=== PATIENT | male | born 1970 | race African-American/Black ===

== ENCOUNTER 2016-10-30 18:33 | Emergency (ER) | payer OTHER ==
[2016-10-30 19:13] VITALS: BP 118/84
--- NOTE | 2016-10-30 19:15 | ER Document Report ---
HPI - HPI Patient complains to provider of: right knee pain Onset: Last week Onset/Duration: Persistent Quality of pain: Achy Severity: Severe Pain Level: 4 Context: Patient presents to the emergency department with complaints of right knee pain. He reports that he possibly twisted it last week. He went to physicians immediate care treated with Ultram and anti-inflammatory. Patient reports the pain has been increasing. Patient offered pain medication but declined reports is feeling better since he took the Tylenol. Denies pmh of injury to the knee. Associated Symptoms: None Exacerbated by: Walking Relieved by: Denies Similar symptoms previously: Yes Recently seen / treated by doctor: Yes - DERM Skin Color: Normal Past Medical History - General Information source: Patient - Social History Smoking Status: Unknown if Ever Smoked Cigarette use (# per day): No Frequency of alcohol use: None Drug Abuse: None Lives with: Family Family History: None Patient has suicidal ideation: No Patient has homicidal ideation: No Endocrine Medical History: Reports: Hx Diabetes Mellitus Type 2 Renal/ Medical History: Denies: Hx Peritoneal Dialysis Surgical Hx: Negative Vertical Provider Document - CONSTITUTIONAL Agree With Documented VS: Yes Exam Limitations: No Limitations General Appearance: WD/WN, Mild Distress - winces with movement - INFECTION CONTROL TRAVEL OUTSIDE OF THE [place] IN LAST 30 DAYS: No - HEENT HEENT: Atraumatic, Normocephalic - NECK Neck: Supple - RESPIRATORY Respiratory: No Respiratory Distress O2 Sat by Pulse Oximetry: 95 - CARDIOVASCULAR Cardiovascular: Tachycardia - MUSCULOSKELETAL/EXTREMETIES Musculoskeletal/Extremeties: MAEW, Tender - right anterior knee ttp, hurts more when turning medially. no obvious deformity, no erythema, no obvious swelling - NEURO Level of Consciousness: Awake, Alert, Appropriate Motor/Sensory: No Motor Deficit - DERM Integumentary: Warm, Dry Adult Front & Back Diagram: 1 - ttp Course - Re-evaluation Re-evalutation: 10/30/16 20:02 No acute fracture Discussed tendinosis with patient. Patient instructed on plan of care rest ice elevated. Pt reports he was prescribed meloxicam. He was instructed to follow up with orthopedics rest ice and elevate the knee. He was prescribed some pain medication for the acute pain. He verbalized understanding to all instructions - Vital Signs Vital signs: Temp Pulse Resp BP Pulse Ox 98.5 F 100 18 118/84 95 10/30/16 19:12 10/30/16 19:12 10/30/16 19:12 10/30/16 19:12 10/30/16 19:12 - Diagnostic Test Radiology reviewed: Image reviewed, Reports reviewed - Diagnostic report text EXAM DESCRIPTION: KNEE RIGHT 4 VIEWS COMPLETED DATE/TIME: 10/30/2016 7:28 pm REASON FOR STUDY: 31- knee pain COMPARISON: None. NUMBER OF VIEWS: Four views. TECHNIQUE: AP, lateral, and both oblique radiographic images acquired of the right knee. LIMITATIONS: None. FINDINGS: MINERALIZATION: Normal. BONES: No acute fracture or dislocation. No worrisome bone lesions. Enthesopathy superior patella and tibial tuberosity compatible with chronic tendinosis. JOINT: Mild osteoarthritis patellofemoral compartment. SOFT TISSUES: No soft tissue swelling. No radio-opaque foreign body. OTHER: No other significant finding. TECHNICAL DOCUMENTATION: JOB ID: [id number]- All Rights Reserved RAD/ KNEE RIGHT 4 VIEWS IMPRESSION: DEGENERATIVE CHANGE ABOVE WITHOUT ACUTE OSSEOUS ABNORMALITY Discharge - Discharge Clinical Impression: Right knee pain Qualifiers: Chronicity: acute Qualified Code(s): M25.561 - Pain in right knee Condition: Stable Disposition: HOME, SELF-CARE Instructions: Suspected Internal Knee Injury ([facility]), Ice & Elevation ([facility]), Oral Narcotic Medication ([facility]) Additional Instructions: *You have been evaluated for right knee pain *Rest/Ice/Elevate *Follow up with orthopedics tomorrow-call for an appointment *Take medication as prescribed *Return to ED for worsening condition, changes, needs Forms: Return to Work Referrals: [facility] [Provider Group] - Follow up tomorrow (call for appointment)
[2016-10-30] MEDS ORDERED: HYDROCODONE/ACETAMINOPHEN 5-325 MG 6 TAB/DSPK PO PRN (19:46)
== END 2016-10-30 20:05 | disposition home or self-care (01) ==
LOC: ER 18:33
DX: M25.561 Pain in right knee (principal)
CPT/HCPCS: 99283

== ENCOUNTER 2017-03-25 18:29 | Inpatient (IN) | payer OTHER ==
[2017-03-25 19:37] LABS: ABSOLUTE EOSINOPHILS # (AUTO) 0.2 10^3/uL (0.0-0.6); ABSOLUTE LYMPHOCYTES (AUTO) 1.5 10^3/uL (0.5-4.7); ABSOLUTE MONOCYTES (AUTO) 0.6 10^3/uL (0.1-1.4); ABSOLUTE NEUT (AUTO) 5.7 10^3/uL (1.7-8.2); BASOPHILS % (AUTO) 0.3 % (0-2); HEMATOCRIT 52.2 % (37.9-51.0); HGB HCT DIFFERENCE -1.2; LYMPHOCYTES % (AUTO) 19.3 % (13-45); MEAN CORPUSCULAR HEMOGLOBIN 25.2 pg (27.0-33.4); MEAN CORPUSCULAR HGB CONC 32.6 g/dL (32.0-36.0); MEAN CORPUSCULAR VOLUME 77 fl (80-97); MONOCYTES % (AUTO) 7.3 % (3-13); RED BLOOD COUNT 6.74 10^6/uL (4.35-5.55); RED CELL DISTRIBUTION WIDTH 14.4 % (11.5-14.0); SEGMENTED NEUTROPHILS % (AUTO) 71.1 % (42-78)
--- NOTE | 2017-03-25 19:37 | ER Document Report ---
ED General - General Chief Complaint: General Weakness Stated Complaint: BODY WEAKNESS Time Seen by Provider: 03/25/17 19:12 Mode of Arrival: Ambulatory Information source: Patient Notes: This is a 46-year-old man recently diagnosed with diabetes who presents to the emergency room because of his extreme weakness, feeling faint. Patient's blood pressure was noted to be 73/24 in triage with a heart rate of 126. Patient denies chest pain or shortness of breath. Patient denies fever, chills or recent illnesses. Patient denies nausea or vomiting. Patient denies abdominal pain. Patient denies any blood per rectum. TRAVEL OUTSIDE OF THE [place] IN LAST 30 DAYS: No - HPI Onset: Last week Onset/Duration: Gradual Quality of pain: No pain Severity: None Pain Level: Denies Associated symptoms: denies: Chest pain, Fever, Shortness of breath Exacerbated by: Denies Relieved by: Denies Similar symptoms previously: No Recently seen / treated by doctor: Yes - Related Data Allergies/Adverse Reactions: strawberry Allergy (Verified 03/25/17 18:43) Past Medical History - General Information source: Patient - Social History Smoking Status: Former Smoker Cigarette use (# per day): No Chew tobacco use (# tins/day): No Frequency of alcohol use: None Drug Abuse: None Lives with: Family Family History: None Patient has suicidal ideation: No Patient has homicidal ideation: No - Past Medical History Cardiac Medical History: Reports: None Pulmonary Medical History: Reports: None EENT Medical History: Reports: None Endocrine Medical History: Reports: Hx Diabetes Mellitus Type 2 Renal/ Medical History: Reports: None. Denies: Hx Peritoneal Dialysis Malignancy Medical History: Reports None GI Medical History: Reports: None Musculoskeltal Medical History: Reports None Psychiatric Medical History: Reports: None Traumatic Medical History: Reports: None Infectious Medical History: Reports: None Surgical Hx: Negative - Immunizations Hx Diphtheria, Pertussis, Tetanus Vaccination: Yes Review of Systems - Review of Systems Constitutional: denies: Chills, Fever EENT: No symptoms reported Cardiovascular: No symptoms reported Respiratory: No symptoms reported Gastrointestinal: No symptoms reported Genitourinary: No symptoms reported Male Genitourinary: No symptoms reported Musculoskeletal: No symptoms reported Skin: No symptoms reported Hematologic/Lymphatic: No symptoms reported Neurological/Psychological: See HPI Physical Exam - Vital signs Vitals: Temp Pulse Resp BP Pulse Ox 97.7 F 126 H 20 73/24 L 97 03/25/17 18:43 03/25/17 18:43 03/25/17 18:43 03/25/17 18:43 03/25/17 18:43 Notes: Physical exam: GENERAL: 46-year-old man, alert and oriented 3, no acute distress, current blood pressure is 127/50 with a pulse of 120 HEAD: Atraumatic, normocephalic. EYES: Pupils equal round and reactive to light, extraocular movements intact, sclera anicteric, conjunctiva are normal. ENT: TMs normal, nares patent, oropharynx clear without exudates. Moist mucous membranes. NECK: Normal range of motion, supple without obvious mass or JVD. LUNGS: Breath sounds clear to auscultation bilaterally and equal. No wheezes rales or rhonchi. HEART: Regular rate and rhythm without murmurs, rubs or gallops. ABDOMEN: Soft, normoactive bowel sounds. No tenderness to palpation. No guarding, no rebound. No masses appreciated. EXTREMITIES: Normal range of motion, no pitting or edema. No clubbing or cyanosis. NEUROLOGICAL: Cranial nerves II through XII grossly intact. Normal speech, moving all extremities. PSYCH: Normal mood, normal affect. SKIN: Warm, Dry, normal turgor, no rashes or lesions noted. Course - Re-evaluation Re-evalutation: 03/25/17 21:33 Patient has been treated with IV fluids and IV insulin. His last blood pressure is 126/82 with a pulse of 93 plan is for admit to the [facility] - Vital Signs Vital signs: Temp Pulse Resp BP Pulse Ox 97.7 F 126 H 18 131/70 H 96 03/25/17 19:21 03/25/17 19:21 03/25/17 23:01 03/25/17 23:01 03/25/17 23:01 - Laboratory Result Diagrams: 03/25/17 19:03 03/25/17 19:03 Laboratory results interpreted by me: 03/25/17 03/25/17 03/25/17 19:03 19:03 19:43 RBC 6.74 H Hct 52.2 H MCV 77 L MCH 25.2 L RDW 14.4 H VBG pH 7.20 L VBG HCO3 14.2 L Sodium 135.3 L Potassium 5.7 H Carbon Dioxide 13 L Anion Gap 24 H BUN 23 H Creatinine 1.42 H Est GFR (Non-Af Amer) 53 L Glucose 464 H* Direct Bilirubin 0.6 H ALT 105 H Creatine Kinase 199 H Urine Glucose (UA) Urine Ketones Urine Blood 03/25/17 20:03 RBC Hct MCV MCH RDW VBG pH VBG HCO3 Sodium Potassium Carbon Dioxide Anion Gap BUN Creatinine Est GFR (Non-Af Amer) Glucose Direct Bilirubin ALT Creatine Kinase Urine Glucose (UA) >=500 H Urine Ketones 80 H Urine Blood SMALL H - Diagnostic Test Radiology reviewed: Image reviewed, Reports reviewed - Chest x-ray shows no infiltrates or effusions Critical Care Note - Critical Care Note Total time excluding time spent on procedures (mins): 90 Discharge - Discharge Clinical Impression: DKA Condition: Stable Disposition: ADMITTED INPATIENT Admitting Provider: Hospitalist - Dr. Flores Unit Admitted: [facility]
[2017-03-25] MEDS ORDERED: NORMAL SALINE 1000 ML 1,000 ML IV PRN ×2 (19:38→23:59)
[2017-03-25] MEDS ORDERED: RINGERS SOLUTION,LACTATED 1,000 ML IV ONE (19:38)
[2017-03-25 19:41] LABS: ALANINE AMINOTRANSFERASE 105 U/L (21-72); ALBUMIN 4.9 g/dL (3.5-5.0); ALKALINE PHOSPHATASE 82 U/L (38-126); ASPARTATE AMINO TRANSFERASE 38 U/L (17-59); BILIRUBIN,DIRECT 0.6 mg/dL (0.0-0.4); BILIRUBIN,TOTAL 0.9 mg/dL (0.2-1.3); BLOOD UREA NITROGEN 23 mg/dL (7-20); CHLORIDE 98 mmol/L (98-107); CREATINE KINASE 199 U/L (55-170); CREATININE RESULT 1.42 mg/dL (0.52-1.25); POTASSIUM 5.7 mmol/L (3.6-5.0); TOTAL PROTEIN 8.2 g/dL (6.3-8.2)
[2017-03-25 19:53] LABS: CREATINE KINASE MB 2.13 ng/mL (<4.55); GLUCOSE 464 mg/dL (75-110)
[2017-03-25 19:56] LABS: VENOUS BLOOD BASE EXCESS -13.1 mmol/L; VENOUS BLOOD HCO3 14.2 mmol/L (20-32); VENOUS BLOOD PCO2 37.4 mmHg (35-63); VENOUS BLOOD PH 7.2 (7.30-7.42)
[2017-03-25 19:56] LABS: CARBON DIOXIDE 13 mmol/L (22-30); SODIUM 135.3 mmol/L (137-145)
[2017-03-25 19:57] LABS: ANION GAP 24 (5-19)
[2017-03-25 19:58] LABS: TROPONIN I < 0.012 ng/mL
[2017-03-25] MEDS ORDERED: DEXTROSE 50%-WATER 25 GM/50 ML DISP.SYRIN IV PRN ×4 (20:00→21:40)
[2017-03-25] MEDS ORDERED: NORMAL SALINE 100 ML with INSULIN REGULAR, HUMAN 100 UNIT IV PRN ×2 (20:00)
[2017-03-25] MEDS ORDERED: GLUCAGON,HUMAN RECOMB 1 MG INJ IM PRN ×2 (20:00→21:40)
[2017-03-25] MEDS ORDERED: DEXTROSE 40% GEL 15 GM TUBE PO PRN ×4 (20:00→21:40)
[2017-03-25 20:20] LABS: APPEARANCE,URINE CLEAR; BILIRUBIN,URINE NEGATIVE (NEGATIVE); GLUCOSE, URINE >=500 mg/dL (NEGATIVE); KETONES,URINE 80 mg/dL (NEGATIVE); LEUKOCYTE ESTERASE,URINE NEGATIVE (NEGATIVE); NITRITE,URINE NEGATIVE (NEGATIVE); PROTEIN,URINE NEGATIVE (NEGATIVE); URINE SPECIFIC GRAVITY 1.022; UROBILINOGEN,URINE NEGATIVE mg/dL (<2.0)
[2017-03-25] MEDS ORDERED: INSULIN REG, HUMAN 100 UNIT/ML 3 ML VIAL (PYX) ONE ×2 (21:11→21:12)
[2017-03-25] MEDS: NORMAL SALINE 100 ML with INSULIN REGULAR, HUMAN 100 UNIT IV PRN ×4 (21:12→22:47)
--- NOTE | 2017-03-25 21:38 | RADIOLOGY REPORT (SQ) ---
EXAM DESCRIPTION: CHEST SINGLE VIEW COMPLETED DATE/TIME: 03/25/2017 9:29 pm REASON FOR STUDY: chest pain COMPARISON: None. EXAM PARAMETERS: NUMBER OF VIEWS: One view. TECHNIQUE: Single frontal radiographic view of the chest acquired. RADIATION DOSE: NA LIMITATIONS: None. FINDINGS: LUNGS AND PLEURA: No opacities, masses or pneumothorax. No pleural effusion. MEDIASTINUM AND HILAR STRUCTURES: No masses. Contour normal. HEART AND VASCULAR STRUCTURES: Heart normal in size. Normal vasculature. BONES: No acute findings. HARDWARE: None in the chest. OTHER: No other significant finding. IMPRESSION: NO ACUTE RADIOGRAPHIC FINDING IN THE CHEST. TECHNICAL DOCUMENTATION: JOB ID: [id number]
[2017-03-25] MEDS ORDERED: 1/2 NORMAL SALINE 1,000 ML IV PRN (21:40)
[2017-03-25] MEDS ORDERED: 1/2 NORMAL SALINE 2,000 ML IV ONE (21:41)
[2017-03-25] MEDS ORDERED: ACETAMINOPHEN 325 MG TABLET PO PRN (21:42)
[2017-03-25] MEDS ORDERED: PROMETHAZINE HCL 25 MG TABLET PO PRN (21:44)
[2017-03-25 21:51] LABS: ADD ON TESTING BLD IN LAB ACKNOWLEDGE
[2017-03-25 22:14] LABS: MAGNESIUM 2.2 mg/dL (1.6-2.3)
[2017-03-25 22:18] LABS: URINE BARBITURATES SCREEN NEGATIVE; URINE METHADONE SCREEN NEGATIVE; URINE OPIATES LOW NEGATIVE; URINE PHENCYCLIDINE SCREEN NEGATIVE
[2017-03-25 23:29] LABS: BLOOD UREA NITROGEN 21 mg/dL (7-20); CALCIUM 9.2 mg/dL (8.4-10.2); CARBON DIOXIDE 12 mmol/L (22-30); CHLORIDE 104 mmol/L (98-107); CREATININE RESULT 1.15 mg/dL (0.52-1.25); GLUCOSE 297 mg/dL (75-110)
[2017-03-25 23:37] LABS: POTASSIUM 5.1 mmol/L (3.6-5.0); SODIUM 135.9 mmol/L (137-145)
[2017-03-25 23:42] LABS: ANION GAP 20 (5-19)
[2017-03-26 00:07] LABS: ADD ON TESTING BLD IN LAB ACKNOWLEDGE
--- NOTE | 2017-03-26 00:17 | PDOC H&P ---
History of Present Illness Admission Date/PCP: 03/25/17 21:45 Primary CARE provider none Patient complains of: Weakness History of Present Illness: CLAUDE SHELTON is a 46 year old morbidly obese -[place] male diagnosed last Saturday at an urgent care center with diabetes mellitus and started on metformin for same who presents to the emergency room for evaluation of above complaint. Patient has been discussed with emergency room physician who evaluated the patient. Over the last day or so, he has noted "extreme" generalized weakness, feeling faint, although never actually passing out. Patient's blood pressure in triage reported as 73/24, but subsequent blood pressures have been quite acceptable. States his blood sugar at the local urgent care center was "immeasurable." Was given a prescription for metformin. Frequent urination and thirst. Denies nausea vomiting, fever or chills, diarrhea or dysuria. No headache chest or abdominal pain. Denies any "sore spots" anywhere on his body. Family history remarkable for diabetes mellitus. Dictation via voice recognition software. Laboratory results are listed in [employer] and are reviewed. X-ray summary results are listed below, with full report(s) reviewed. . EKG reviewed. No prior EKG available for comparison. Social history/personal habits: Single. No children. 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 No use of alcohol tobacco or illicit drugs. Allergies/adverse reactions are listed in [employer] and are reviewed. No known drug allergies. Home medications metformin 500 mg p.o. twice daily REVIEW OF SYSTEMS: Constitutional: See history and present illness. Eyes: Wears glasses. ENT: No swallowing problems or complaints. Denies hearing loss. Pulmonary: No current complaints. Cardiovascular: No current complaints, including chest pain. Gastrointestinal: No current complaints, including nausea or vomiting. Skin: No current complaints, including rashes. Hematologic: Denies easy bruising. Neurologic: No current complaints, including numbness or tingling. Musculoskeletal: No current or chronic joint complaints, such as arthritis. Psychiatric: Denies anxiety or depression. Endocrine: See history and present illness. Genitourinary: No current complaints, including dysuria. PHYSICAL EXAMINATION: Blood pressure 134/90. Pulse 125 and regular. 96% saturation on room air. Respirations are 19 and unlabored. 5 feet 8 inches tall. 154.2 kg, with a BMI 51.7 kg/m. Temperature 97.7. Morbidly obese otherwise well-developed -[place] male appearing approximately his stated age. Pleasant awake alert and cooperative. No obvious distress other than somewhat anxious. Brother and [id number] are present at his side; patient approves. Skin is warm and dry. No grossly obvious evidence of rash in areas of skin examined. No subcutaneous nodules palpated. ENT: Hearing grossly normal to normal conversation. Tongue midline on protrusion pink and slightly tacky. Eyes: No scleral icterus. Pupils equal and reactive to light at 4 mm. [place] conjunctivae. Neck is supple and nontender to gentle active range of motion and palpation. Midline trachea. No palpable thyroid nodule mass enlargement or tenderness. Lymphatic: No palpable cervical or clavicular nodes. Neck and lymphatic exams limited by patient body habitus. Psychiatric: Reasonable insight into acute and chronic medical issues. Oriented to time location and why here. Lungs: Auscultation reveals clear and equal breath sounds bilaterally. No use of accessory respiratory muscles. Cardiovascular: Heart regular rate and rhythm, without gallop murmur or rub. No carotid or abdominal aortic bruits. No ankle or pedal edema. Faintly palpable dorsalis pedis pulses. Abdomen:soft quite obese nontender with positive bowel sounds. Unable to adequately evaluate abdomen for masses or organomegaly due to body habitus.. Extremities: Feet are warm and dry. No calf tenderness to compression. No grossly obvious visual evidence of calf swelling. Gentle manipulation of lower extremities fails to reveal any obvious evidence of injury or instability to knees hips or ankles. Neurologic: Moves upper extremities grossly normally. Patellar reflexes absent. Absent Babinski. Light touch is intact at feet. Dorsiflexion and plantarflexion of feet 5 / 5 and symmetric. Past Medical History Cardiac Medical History: Denies: Atrial Fibrillation, Congestive Heart Failure, Coronary Artery Disease, DVT, Myocardial Infarction, Hyperlipidema, Hypertension, Pulmonary Embolism Pulmonary Medical History: Denies: Asthma, Chronic Obstructive Pulmonary Disease (COPD), Sleep Apnea EENT Medical History: Reports: Eyes - Glasses Denies: Ears, Throat Neurological Medical History: Denies: Hemorrhagic CVA, Ischemic CVA, Seizures Endocrine Medical History: Reports: Diabetes Mellitus Type 2 Denies: Diabetes Mellitus Type 1, Hyperthyroidism, Hypothyroidism Renal/ Medical History: Reports: None Malignancy Medical History: Reports: None GI Medical History: Denies: Cirrhosis, Gastroesophageal Reflux Disease, Hepatitis, Peptic Ulcer Disease Musculoskeltal Medical History: Denies: Arthritis Skin Medical History: Reports: None Psychiatric Medical History: Denies: Alcohol Dependency, Depression, General Anxiety Disorder, Substance Abuse, Tobacco Dependency Traumatic Medical History: Reports: None Infectious Medical History: Denies: Hepatitis B, Hepatitis C Past Surgical History Past Surgical History: Reports: None Social History Information Source: Patient, Emergency Med Personnel, [facility] Lives with: Family Smoking Status: Unknown if Ever Smoked Frequency of Alcohol Use: None Hx Recreational Drug Use: No Drugs: None - Advance Directive Resuscitation Status: Full Code Surrogate healthcare decision maker:: Sister Cielo Byrd Family History Family History: None Parental Family History Reviewed: Yes - Mother alive and hypertensive; father alive, uncertain health status Children Family History Reviewed: NA Sibling(s) Family History Reviewed.: Yes - Hypertension Medication/Allergy Home Medications: RX: Insulin Glargine,Hum.rec.anlog [Lantus Insulin 100 Unit/mL] 40 unit SUBCUT DAILY #1 pkg 03/28/17 RX: Insulin Lispro [Humalog Insulin (Lispro) 100 unit/mL] 8 unit SUBCUT AC #1 g 03/28/17 RX: Metformin HCl [Glucophage 500 mg Tablet] 1,000 mg PO BIDACBS #60 tablet Allergies/Adverse Reactions: strawberry Allergy (Verified 03/25/17 18:43) Physical Exam Vital Signs: Temp Pulse Resp BP Pulse Ox 97.7 F 126 H 18 131/70 H 96 03/25/17 19:21 03/25/17 19:21 03/25/17 23:01 03/25/17 23:01 03/25/17 23:01 Intake & Output 03/24/17 03/25/17 03/26/17 00:59 00:59 00:59 Intake Total 2000 Output Total 500 Balance 1500 Results Laboratory Results: 03/25/17 22:50 03/25/17 03/25/17 22:05 22:50 Sodium Cancelled 135.9 L Potassium Cancelled 5.1 H Chloride Cancelled 104 Carbon Dioxide Cancelled 12 L Anion Gap Cancelled 20 H BUN Cancelled 21 H Creatinine Cancelled 1.15 Est GFR ( Amer) Cancelled > 60 Est GFR (Non-Af Amer) Cancelled > 60 Glucose Cancelled 297 H Calcium Cancelled 9.2 Impressions: Chest X-Ray 03/25/17 21:21 IMPRESSION: NO ACUTE RADIOGRAPHIC FINDING IN THE CHEST. Assessment & Plan - Diagnosis (1) DKA, type 2 Qualifiers: Diabetes mellitus complication detail: without coma Diabetes mellitus intermediate manager insulin use: without [facility] use Qualified Code(s): E13.10 - Other specified diabetes mellitus with ketoacidosis without coma Is this a current diagnosis for this admission?: Yes Plan: Patient will be admitted under DKA protocol. Insulin drip. Vigorous fluid hydration. Q 4 hours chemistry 7. Hourly Accu-Cheks. Addition of dextrose to intravenous fluid once serum glucose and/or Accu-Cheks 275 or less. Patient is full code. I have strongly encouraged patient not to get out of bed without notifying staff , to avoid a fall with injury. Knee high SCDs for DVT prophylaxis, along with subcutaneous heparin. Impression and plans were discussed with patient , who concurs. Time spent in evaluation and management of patient: 70 critical care minutes (2) DVT prophylaxis Is this a current diagnosis for this admission?: Yes (3) Elevated LFTs Is this a current diagnosis for this admission?: Yes Plan: Repeat chemistry. (4) Morbid obesity with BMI of 50.0-59.9, adult Is this a current diagnosis for this admission?: Yes Plan: Dietary consult. - Time Critical Time spent with patient: 35 or more minutes Medications reviewed and adjusted accordingly: Yes Anticipated discharge: Home Within: within 72 hours - Inpatient Certification Based on my medical assessment, after consideration of the patient's comorbidities, presenting symptoms, or acuity I expect that the services needed warrant INPATIENT care.: Yes I certify that my determination is in accordance with my understanding of Medicare's requirements for reasonable and necessary INPATIENT services [42 CFR 412.3e].: Yes Medical Necessity: Need Close Monitoring Due to Risk of Patient Decompensation, Need For IV Fluids, Need For Continuous Telemetry Monitoring, Risk of Diagnosis Which Will Require Inpatient Eval/Care/Monitoring Post Hospital Care: D/C or Transfer Summary
[2017-03-26] MEDS ORDERED: NORMAL SALINE 1000 ML 2,000 ML IV ONE (00:30)
[2017-03-26 00:38] LABS: CHOLESTEROL 226.56 mg/dL (0-200); Direct HDL 36 mg/dL (>40); TRIGLYCERIDES 232 mg/dL (<150)
[2017-03-26] MEDS ORDERED: MAGNESIUM HYDROXIDE SUSP 30 ML UDCUP PO PRN (00:43)
[2017-03-26 00:49] LABS: DIRECT LDL 158 mg/dL (<100)
[2017-03-26 00:51] LABS: VLDL CHOLESTEROL 46.4 mg/dL (10-31)
[2017-03-26] MEDS: DEXTROSE 5%-NORMAL SALINE 1,000 ML IV PRN ×2 (01:26→04:48)
[2017-03-26 02:16] LABS: ANION GAP 16 (5-19); BLOOD UREA NITROGEN 18 mg/dL (7-20); CALCIUM 8.6 mg/dL (8.4-10.2); CARBON DIOXIDE 16 mmol/L (22-30); CHLORIDE 107 mmol/L (98-107); CREATININE RESULT 1.13 mg/dL (0.52-1.25); GLUCOSE 186 mg/dL (75-110); POTASSIUM 4.7 mmol/L (3.6-5.0); SODIUM 138.9 mmol/L (137-145)
[2017-03-26 06:14] LABS: ANION GAP 10 (5-19); BLOOD UREA NITROGEN 16 mg/dL (7-20); CALCIUM 8.1 mg/dL (8.4-10.2); CARBON DIOXIDE 19 mmol/L (22-30); CHLORIDE 109 mmol/L (98-107); CREATININE RESULT 1.03 mg/dL (0.52-1.25); GLUCOSE 196 mg/dL (75-110)
[2017-03-26 06:26] LABS: ABSOLUTE EOSINOPHILS # (AUTO) 0.2 10^3/uL (0.0-0.6); ABSOLUTE LYMPHOCYTES (AUTO) 1.4 10^3/uL (0.5-4.7); ABSOLUTE MONOCYTES (AUTO) 0.6 10^3/uL (0.1-1.4); ABSOLUTE NEUT (AUTO) 3.2 10^3/uL (1.7-8.2); BASOPHILS % (AUTO) 0.5 % (0-2); EOSINOPHILS % (AUTO) 3.8 % (0-6); HGB HCT DIFFERENCE -0.5; MEAN CORPUSCULAR HEMOGLOBIN 25.1 pg (27.0-33.4); MEAN CORPUSCULAR VOLUME 76 fl (80-97); MONOCYTES % (AUTO) 10.7 % (3-13); RED BLOOD COUNT 5.41 10^6/uL (4.35-5.55); RED CELL DISTRIBUTION WIDTH 14.1 % (11.5-14.0); WHITE BLOOD COUNT 5.5 10^3/uL (4.0-10.5)
[2017-03-26 06:28] LABS: HEMOGLOBIN 13.5 g/dL (13.5-17.0)
[2017-03-26] MEDS: HEPARIN SOD (PORCINE) 5,000 UNIT/ML 1 ML SYRINGE SUBCUT SCH ×3 (06:43→21:55)
[2017-03-26] MEDS ORDERED: INSULIN REG, HUMAN 100 UNIT/ML 3 ML VIAL (PYX) ONE (07:37)
[2017-03-26] MEDS: NORMAL SALINE 100 ML with INSULIN REGULAR, HUMAN 100 UNIT IV PRN ×2 (07:48)
[2017-03-26] MEDS ORDERED: DEXTROSE 40% GEL 15 GM TUBE PO PRN (09:18)
[2017-03-26] MEDS ORDERED: GLUCAGON,HUMAN RECOMB 1 MG INJ IM PRN (09:18)
[2017-03-26] MEDS ORDERED: DEXTROSE 50%-WATER 25 GM/50 ML DISP.SYRIN IV PRN ×2 (09:18)
[2017-03-26] MEDS: INSULIN GLARGINE,HUM.REC.ANLOG 300 UNIT/3 ML INSULN.PEN SUBCUT SCH (10:47)
[2017-03-26] MEDS: POTASSI CL 20 MEQ/NS 1L 1,000 ML IV PRN ×2 (10:47→18:08)
[2017-03-26] MEDS: DOCUSATE SODIUM 100 MG CAPSULE PO SCH ×2 (10:48→17:30)
[2017-03-26 11:15] LABS: HEMOGLOBIN 13.5 g/dL (13.5-17.0); HGB HCT DIFFERENCE -0.5; MEAN CORPUSCULAR HEMOGLOBIN 24.9 pg (27.0-33.4); MEAN CORPUSCULAR VOLUME 76 fl (80-97); RED BLOOD COUNT 5.43 10^6/uL (4.35-5.55); RED CELL DISTRIBUTION WIDTH 14.1 % (11.5-14.0); WHITE BLOOD COUNT 4.9 10^3/uL (4.0-10.5)
[2017-03-26 11:35] LABS: ANION GAP 10 (5-19); BLOOD UREA NITROGEN 15 mg/dL (7-20); CALCIUM 8.3 mg/dL (8.4-10.2); CARBON DIOXIDE 20 mmol/L (22-30); CHLORIDE 108 mmol/L (98-107); GLUCOSE 228 mg/dL (75-110); POTASSIUM 4.4 mmol/L (3.6-5.0); SODIUM 137.5 mmol/L (137-145)
--- NOTE | 2017-03-26 11:53 | PDOC PROGRESS REPORT ---
Subjective Progress Note for:: 03/26/17 Subjective:: The patient is a morbidly obese 46-year-old -[place] male who was seen at a local urgent care a few days prior to admission. At that visit his blood sugar was too high to read on the meter and he was diagnosed with diabetes and sent home with a prescription of metformin. Over the next 3 days the patient continued to worsen and he presented to the emergency room where he was found to have evidence of diabetic ketoacidosis. He was admitted to the hospital and started on an insulin drip. This morning his anion gap is closed and his blood sugar has stabilized. Hemoglobin A1c is greater than 14. He is being transitioned to Lantus with sliding scale Humalog this afternoon and we will see how he does over the next 24 hours. This morning he states that he is feeling remarkably better than when he first came to the hospital. He was having polydipsia and polyuria which is greatly improved. He does not have a headache as well. He is going to be started on a diabetic diet today and we are going to have our diabetes nurse educator as well as the clinical dietitian seeing him today as well. I spent quite some time with the patient with initial education and all of his questions were answered. At this point it does look like the patient will be requiring insulin at discharge and the nursing staff is been asked to provide insulin training as well. Overall the patient denies fever or chills. His headache is improving. His polydipsia is resolving. He has had no chest pain, shortness of breath or heart palpitations. No nausea vomiting or diarrhea. No abdominal pain. His urinary frequency is improving. No dysuria or hematuria noted. Physical Exam Vital Signs: Temp Pulse Resp BP Pulse Ox 98.4 F 106 H 20 127/62 H 97 03/26/17 08:20 03/26/17 08:20 03/26/17 08:20 03/26/17 08:20 03/26/17 08:20 Intake & Output 03/25/17 03/26/17 03/27/17 06:59 06:59 06:59 Intake Total 4120 Output Total 500 Balance 3620 General appearance: PRESENT: no acute distress, morbidly obese, well-developed, well-nourished Head exam: PRESENT: atraumatic, normocephalic Eye exam: PRESENT: conjunctiva pink, EOMI, PERRLA. ABSENT: scleral icterus Mouth exam: PRESENT: moist, tongue midline Neck exam: ABSENT: carotid bruit, JVD, lymphadenopathy, thyromegaly Respiratory exam: PRESENT: clear to auscultation jolly. ABSENT: rales, rhonchi, wheezes Cardiovascular exam: PRESENT: tachycardia. ABSENT: diastolic murmur, rubs, systolic murmur GI/Abdominal exam: PRESENT: normal bowel sounds, soft. ABSENT: distended, guarding, mass, organolmegaly, rebound, tenderness Rectal exam: PRESENT: deferred Extremities exam: PRESENT: full ROM. ABSENT: calf tenderness, clubbing, pedal edema Musculoskeletal exam: PRESENT: ambulatory Neurological exam: PRESENT: alert, awake, oriented to person, oriented to place , oriented to time, oriented to situation, CN II-XII grossly intact. ABSENT: motor sensory deficit Psychiatric exam: PRESENT: appropriate affect, normal mood. ABSENT: homicidal ideation, suicidal ideation Skin exam: PRESENT: dry, intact, warm. ABSENT: cyanosis, rash Results Laboratory Results: 03/26/17 11:00 03/26/17 11:00 03/26/17 03/26/17 03/26/17 01:40 05:42 05:42 WBC 5.5 RBC 5.41 Hgb 13.5 D Hct 41.0 MCV 76 L MCH 25.1 L MCHC 33.0 RDW 14.1 H Plt Count 122 L Seg Neutrophils % 59.0 Lymphocytes % 26.0 Monocytes % 10.7 Eosinophils % 3.8 Basophils % 0.5 Absolute Neutrophils 3.2 Absolute Lymphocytes 1.4 Absolute Monocytes 0.6 Absolute Eosinophils 0.2 Absolute Basophils 0.0 Sodium 138.9 138.0 Potassium 4.7 4.0 Chloride 107 109 H Carbon Dioxide 16 L 19 L Anion Gap 16 10 BUN 18 16 Creatinine 1.13 1.03 Est GFR ( Amer) > 60 > 60 Est GFR (Non-Af Amer) > 60 > 60 Glucose 186 H 196 H Calcium 8.6 8.1 L 03/26/17 03/26/17 11:00 11:00 WBC 4.9 RBC 5.43 Hgb 13.5 Hct 41.0 MCV 76 L MCH 24.9 L MCHC 33.0 RDW 14.1 H Plt Count 122 L Seg Neutrophils % Lymphocytes % Monocytes % Eosinophils % Basophils % Absolute Neutrophils Absolute Lymphocytes Absolute Monocytes Absolute Eosinophils Absolute Basophils Sodium 137.5 Potassium 4.4 Chloride 108 H Carbon Dioxide 20 L Anion Gap 10 BUN 15 Creatinine 1.00 Est GFR ( Amer) > 60 Est GFR (Non-Af Amer) > 60 Glucose 228 H Calcium 8.3 L Impressions: Chest X-Ray 03/25/17 21:21 IMPRESSION: NO ACUTE RADIOGRAPHIC FINDING IN THE CHEST. Assessment & Plan - Diagnosis (1) Diabetic ketoacidosis Plan: The patient will be weaned off of his insulin drip. His anion gap is closed and his blood sugar is stabilizing. He will be started on Lantus 40 units daily with Humalog sliding scale before meals at bedtime. I am also going to place him on metformin twice daily at 500 mg. If he tolerates this we will increase it to 1000 mg twice daily at discharge. He will be seen by the diabetes nurse educator as well as the clinical dietitian. The nursing staff will provide insulin training today as well. Overall his diabetic ketoacidosis is resolving. (2) Uncontrolled diabetes mellitus Plan: This is a new diagnosis for the patient. I am going to get the discharge planners involved and he will need to be set up with a primary care physician. Fortunately the patient does have insurance. Otherwise plan as outlined above. (3) Elevated LFTs Is this a current diagnosis for this admission?: Yes Plan: Of undetermined significance at this point. We will simply recheck a liver panel in the morning. (4) Morbid obesity with BMI of 50.0-59.9, adult Is this a current diagnosis for this admission?: Yes Plan: Certainly his weight is contributing to his problems. I suspect he has quite a bit of insulin resistance which is why we will continue the metformin. The clinical dietitian will see him today. He is aware that weight loss would help his overall picture and he seems to be quite motivated at this point. (5) Thrombocytopenia Plan: This is of undetermined significance as well. He will have a CBC drawn in the morning. This may need to be further worked up by his new primary care provider. - Time Time Spent with patient: 35 or more minutes - Inpatient Certification Medical Necessity: Need Close Monitoring Due to Risk of Patient Decompensation - Inpatient hospitalization remains necessary. This patient was diagnosed with new onset diabetes mellitus as an outpatient and he failed conservative therapy. He presented with diabetic ketoacidosis. He is being weaned off of his insulin drip today but is still requiring further IV fluids. We also need to get his blood sugar stabilized on a regimen with Lantus and Humalog and he needs diabetic teaching and training prior to leaving the hospital. I am hopeful that all of this can be accomplished in the next 24-48 hours if the patient continues to improve., Need For IV Fluids
[2017-03-26] MEDS: INSULIN LISPRO 100 UNIT/ML 3 ML VIAL SUBCUT PRN ×3 (12:26→21:56)
[2017-03-26 15:45] LABS: ANION GAP 14 (5-19); BLOOD UREA NITROGEN 17 mg/dL (7-20); CALCIUM 8.5 mg/dL (8.4-10.2); CARBON DIOXIDE 14 mmol/L (22-30); CHLORIDE 108 mmol/L (98-107); CREATININE RESULT 1.22 mg/dL (0.52-1.25); GLUCOSE 341 mg/dL (75-110); POTASSIUM 4.7 mmol/L (3.6-5.0)
[2017-03-26] MEDS ORDERED: METFORMIN HCL 500 MG TABLET PO SCH (16:00)
--- NOTE | 2017-03-26 16:46 | EKG REPORT ---
SEVERITY:- OTHERWISE NORMAL ECG - SINUS TACHYCARDIA : Confirmed by: Ifeoma Bruno MD 26-Mar-2017 16:45:53
[2017-03-26 20:20] LABS: ANION GAP 13 (5-19); BLOOD UREA NITROGEN 18 mg/dL (7-20); CARBON DIOXIDE 14 mmol/L (22-30); CHLORIDE 109 mmol/L (98-107); CREATININE RESULT 1.21 mg/dL (0.52-1.25); GLUCOSE 342 mg/dL (75-110); POTASSIUM 4.8 mmol/L (3.6-5.0)
[2017-03-26 23:30] LABS: ANION GAP 11 (5-19); BLOOD UREA NITROGEN 17 mg/dL (7-20); CALCIUM 8.9 mg/dL (8.4-10.2); CARBON DIOXIDE 19 mmol/L (22-30); CHLORIDE 107 mmol/L (98-107); CREATININE RESULT 1.11 mg/dL (0.52-1.25); GLUCOSE 286 mg/dL (75-110); POTASSIUM 4.6 mmol/L (3.6-5.0)
[2017-03-27 03:15] LABS: ANION GAP 7 (5-19); BLOOD UREA NITROGEN 15 mg/dL (7-20); CALCIUM 8.9 mg/dL (8.4-10.2); CARBON DIOXIDE 21 mmol/L (22-30); CHLORIDE 111 mmol/L (98-107); GLUCOSE 247 mg/dL (75-110); POTASSIUM 4.4 mmol/L (3.6-5.0); SODIUM 138.9 mmol/L (137-145)
[2017-03-27] MEDS: POTASSI CL 20 MEQ/NS 1L 1,000 ML IV PRN ×2 (06:11→16:39)
[2017-03-27] MEDS: HEPARIN SOD (PORCINE) 5,000 UNIT/ML 1 ML SYRINGE SUBCUT SCH ×3 (06:12→22:48)
[2017-03-27 07:54] LABS: ANION GAP 7 (5-19); BLOOD UREA NITROGEN 14 mg/dL (7-20); CALCIUM 8.8 mg/dL (8.4-10.2); CARBON DIOXIDE 23 mmol/L (22-30); CHLORIDE 110 mmol/L (98-107); CREATININE RESULT 1.14 mg/dL (0.52-1.25); GLUCOSE 242 mg/dL (75-110); MAGNESIUM 2.2 mg/dL (1.6-2.3); POTASSIUM 4.3 mmol/L (3.6-5.0); SODIUM 140.2 mmol/L (137-145)
[2017-03-27] MEDS: METFORMIN HCL 500 MG TABLET PO SCH ×2 (08:24→16:34)
[2017-03-27] MEDS: INSULIN LISPRO 100 UNIT/ML 3 ML VIAL SUBCUT SCH ×3 (08:24→16:32)
--- NOTE | 2017-03-27 10:12 | PDOC PROGRESS REPORT ---
Subjective Progress Note for:: 03/27/17 Subjective:: The patient is seen today and states that he continues to improve. He states he did not realize how bad he had been feeling with his blood sugars running so high. His headache is almost totally resolved. He is having no blurry vision. He is having no chest pain, shortness of breath or heart palpitations. He is tolerating his diet and has had no nausea, vomiting or diarrhea. No abdominal pain. In fact he states he has not had a bowel movement since Saturday and is getting to be a little bit uncomfortable. He states his urinary frequency is improving. No dysuria or hematuria. Physical Exam Vital Signs: Temp Pulse Resp BP Pulse Ox 98.3 F 103 H 16 117/50 L 100 03/27/17 07:20 03/27/17 07:20 03/27/17 07:20 03/27/17 07:20 03/27/17 07:20 Intake & Output 03/26/17 03/27/17 03/28/17 06:59 06:59 06:59 Intake Total 4120 4021 Output Total 500 0 Balance 3620 4021 Weight 154.9 kg General appearance: PRESENT: no acute distress, morbidly obese, well-developed, well-nourished Head exam: PRESENT: atraumatic, normocephalic Eye exam: PRESENT: conjunctiva pink, EOMI, PERRLA. ABSENT: scleral icterus Mouth exam: PRESENT: moist, tongue midline Respiratory exam: PRESENT: clear to auscultation jolly. ABSENT: rales, rhonchi, wheezes Cardiovascular exam: PRESENT: RRR. ABSENT: diastolic murmur, rubs, systolic murmur GI/Abdominal exam: PRESENT: hypoactive bowel sounds, soft, other - Abdomen is morbidly obese. I could not assess for organomegaly due to the patient's body habitus.. ABSENT: distended, guarding, mass, rebound, tenderness Rectal exam: PRESENT: deferred Extremities exam: PRESENT: calf tenderness Musculoskeletal exam: PRESENT: ambulatory Neurological exam: PRESENT: alert, awake, oriented to person, oriented to place , oriented to time, oriented to situation, CN II-XII grossly intact. ABSENT: motor sensory deficit Psychiatric exam: PRESENT: appropriate affect, normal mood. ABSENT: homicidal ideation, suicidal ideation Skin exam: PRESENT: dry, intact, warm. ABSENT: cyanosis, rash Results Laboratory Results: 03/26/17 11:00 03/27/17 07:00 03/26/17 03/26/17 03/26/17 11:00 11:00 15:12 WBC 4.9 RBC 5.43 Hgb 13.5 Hct 41.0 MCV 76 L MCH 24.9 L MCHC 33.0 RDW 14.1 H Plt Count 122 L Sodium 137.5 136.0 L Potassium 4.4 4.7 Chloride 108 H 108 H Carbon Dioxide 20 L 14 L Anion Gap 10 14 BUN 15 17 Creatinine 1.00 1.22 Est GFR ( Amer) > 60 > 60 Est GFR (Non-Af Amer) > 60 > 60 Glucose 228 H 341 H Calcium 8.3 L 8.5 Magnesium 03/26/17 03/26/17 03/27/17 19:30 22:50 02:47 WBC RBC Hgb Hct MCV MCH MCHC RDW Plt Count Sodium 136.0 L 137.0 138.9 Potassium 4.8 4.6 4.4 Chloride 109 H 107 111 H Carbon Dioxide 14 L 19 L 21 L Anion Gap 13 11 7 BUN 18 17 15 Creatinine 1.21 1.11 1.20 Est GFR ( Amer) > 60 > 60 > 60 Est GFR (Non-Af Amer) > 60 > 60 > 60 Glucose 342 H 286 H 247 H Calcium 9.0 8.9 8.9 Magnesium 03/27/17 07:00 WBC RBC Hgb Hct MCV MCH MCHC RDW Plt Count Sodium 140.2 Potassium 4.3 Chloride 110 H Carbon Dioxide 23 Anion Gap 7 BUN 14 Creatinine 1.14 Est GFR ( Amer) > 60 Est GFR (Non-Af Amer) > 60 Glucose 242 H Calcium 8.8 Magnesium 2.2 Impressions: Chest X-Ray 03/25/17 21:21 IMPRESSION: NO ACUTE RADIOGRAPHIC FINDING IN THE CHEST. Assessment & Plan - Diagnosis (1) Diabetic ketoacidosis Plan: Resolving. His anion gap is closed and his metabolic acidosis has almost resolved. (2) Uncontrolled diabetes mellitus Plan: Hemoglobin A1c is 13.9. He is tolerating Lantus 40 units daily. I am going to add Humalog 8 units 3 times daily before meals and we will continue sliding scale coverage for now. I am going to increase his metformin to 1000 mg twice daily. Blood sugars are still higher than I would like for them to be but much improved. He has seen the clinical dietitian as well as the diabetes nurse educator. He is checking his own blood sugar and is still working on giving himself insulin injections. He is extremely motivated and asks very good questions regarding his diet. We are going to see if we can get his blood sugar doing a little bit better prior to going home which hopefully will be in the morning. I have asked the discharge planners to assign him a new primary care provider. (3) Elevated LFTs Is this a current diagnosis for this admission?: Yes Plan: I will check a liver panel in the morning. This was likely due to his diabetic ketoacidosis. (4) Morbid obesity with BMI of 50.0-59.9, adult Is this a current diagnosis for this admission?: Yes Plan: Certainly his weight is contributing to his problems. I suspect he has quite a bit of insulin resistance which is why we will continue the metformin. He seems quite motivated to get his blood sugar under control and lose weight. He would like to see the clinical dietitian one more time today because he has a few more questions. (5) Thrombocytopenia Plan: This is of undetermined significance as well. He will have a CBC drawn in the morning. This may need to be further worked up by his new primary care provider although I suspect this was due to his diabetic ketoacidosis. His levels are improving. (6) Constipation Plan: I will start the patient on a stool softener. He will have MiraLAX and a suppository available as needed. - Time Time Spent with patient: 25-34 minutes - Inpatient Certification Medical Necessity: Other - Inpatient hospitalization remains necessary. The patient's blood sugar is still much higher than I would like it to be. He needs to be proficient in giving himself insulin injections and needs further diabetic education prior to leaving the hospital. The tentative plan is to discharge him first thing in the morning after he meets with the diabetes nurse educator and clinical dietitian one more time today.
[2017-03-27] MEDS ORDERED: BISACODYL 10 MG SUPP.RECT PR PRN (10:33)
[2017-03-27] MEDS ORDERED: POLYETHYLENE GLYCOL 3350 POWDER 17 GM/1 PACKET PO PRN (10:34)
[2017-03-27] MEDS ORDERED: DOCUSATE SODIUM 100 MG CAPSULE PO SCH (11:00)
[2017-03-27 11:18] LABS: ANION GAP 9 (5-19); BLOOD UREA NITROGEN 15 mg/dL (7-20); CALCIUM 8.8 mg/dL (8.4-10.2); CARBON DIOXIDE 18 mmol/L (22-30); CHLORIDE 109 mmol/L (98-107); CREATININE RESULT 0.92 mg/dL (0.52-1.25); GLUCOSE 360 mg/dL (75-110); POTASSIUM 4.1 mmol/L (3.6-5.0)
[2017-03-27] MEDS: INSULIN GLARGINE,HUM.REC.ANLOG 300 UNIT/3 ML INSULN.PEN SUBCUT SCH (12:22)
[2017-03-27] MEDS: DOCUSATE SODIUM 100 MG CAPSULE PO SCH ×2 (12:27→18:01)
[2017-03-27 15:30] LABS: ANION GAP 9 (5-19); BLOOD UREA NITROGEN 14 mg/dL (7-20); CALCIUM 8.9 mg/dL (8.4-10.2); CARBON DIOXIDE 18 mmol/L (22-30); CHLORIDE 109 mmol/L (98-107); CREATININE RESULT 0.96 mg/dL (0.52-1.25); GLUCOSE 335 mg/dL (75-110); POTASSIUM 4.3 mmol/L (3.6-5.0); SODIUM 135.5 mmol/L (137-145)
[2017-03-27 19:19] LABS: ANION GAP 8 (5-19); BLOOD UREA NITROGEN 14 mg/dL (7-20); CALCIUM 9.1 mg/dL (8.4-10.2); CARBON DIOXIDE 19 mmol/L (22-30); CHLORIDE 109 mmol/L (98-107); CREATININE RESULT 0.95 mg/dL (0.52-1.25); GLUCOSE 293 mg/dL (75-110); POTASSIUM 4.1 mmol/L (3.6-5.0); SODIUM 136.3 mmol/L (137-145)
[2017-03-27] MEDS: INSULIN LISPRO 100 UNIT/ML 3 ML VIAL SUBCUT PRN (22:48)
[2017-03-27 23:17] LABS: ANION GAP 7 (5-19); BLOOD UREA NITROGEN 13 mg/dL (7-20); CALCIUM 9.3 mg/dL (8.4-10.2); CARBON DIOXIDE 19 mmol/L (22-30); CHLORIDE 112 mmol/L (98-107); CREATININE RESULT 0.94 mg/dL (0.52-1.25); GLUCOSE 268 mg/dL (75-110); POTASSIUM 4.1 mmol/L (3.6-5.0); SODIUM 138.1 mmol/L (137-145)
[2017-03-28 03:17] LABS: BLOOD UREA NITROGEN 12 mg/dL (7-20); CHLORIDE 111 mmol/L (98-107); CREATININE RESULT 1.03 mg/dL (0.52-1.25); GLUCOSE 236 mg/dL (75-110)
[2017-03-28 03:29] LABS: ANION GAP 5 (5-19); CARBON DIOXIDE 23 mmol/L (22-30); SODIUM 139.2 mmol/L (137-145)
[2017-03-28] MEDS: HEPARIN SOD (PORCINE) 5,000 UNIT/ML 1 ML SYRINGE SUBCUT SCH (05:24)
[2017-03-28 07:30] LABS: ABSOLUTE EOSINOPHILS # (AUTO) 0.1 10^3/uL (0.0-0.6); ABSOLUTE LYMPHOCYTES (AUTO) 1.1 10^3/uL (0.5-4.7); ABSOLUTE MONOCYTES (AUTO) 0.3 10^3/uL (0.1-1.4); BASOPHILS % (AUTO) 0.9 % (0-2); EOSINOPHILS % (AUTO) 3.9 % (0-6); HEMATOCRIT 38.1 % (37.9-51.0); HEMOGLOBIN 12.7 g/dL (13.5-17.0); LYMPHOCYTES % (AUTO) 43.5 % (13-45); MEAN CORPUSCULAR HEMOGLOBIN 25.3 pg (27.0-33.4); MEAN CORPUSCULAR HGB CONC 33.5 g/dL (32.0-36.0); MEAN CORPUSCULAR VOLUME 76 fl (80-97); MONOCYTES % (AUTO) 11.6 % (3-13); RED BLOOD COUNT 5.03 10^6/uL (4.35-5.55); RED CELL DISTRIBUTION WIDTH 14.3 % (11.5-14.0); SEGMENTED NEUTROPHILS % (AUTO) 40.1 % (42-78)
[2017-03-28 07:38] LABS: ALANINE AMINOTRANSFERASE 89 U/L (21-72); ALKALINE PHOSPHATASE 58 U/L (38-126); ANION GAP 7 (5-19); ASPARTATE AMINO TRANSFERASE 55 U/L (17-59); BILIRUBIN,DIRECT 0.4 mg/dL (0.0-0.4); BILIRUBIN,TOTAL 0.6 mg/dL (0.2-1.3); BLOOD UREA NITROGEN 11 mg/dL (7-20); CALCIUM 9.1 mg/dL (8.4-10.2); CARBON DIOXIDE 22 mmol/L (22-30); CHLORIDE 110 mmol/L (98-107); CREATININE RESULT 0.95 mg/dL (0.52-1.25); GLUCOSE 248 mg/dL (75-110); MAGNESIUM 1.7 mg/dL (1.6-2.3); POTASSIUM 4.5 mmol/L (3.6-5.0); SODIUM 138.7 mmol/L (137-145); TOTAL PROTEIN 5.1 g/dL (6.3-8.2)
[2017-03-28 07:51] LABS: WHITE BLOOD COUNT 2.6 10^3/uL (4.0-10.5)
[2017-03-28] MEDS: INSULIN LISPRO 100 UNIT/ML 3 ML VIAL SUBCUT SCH (08:15)
[2017-03-28] MEDS: METFORMIN HCL 500 MG TABLET PO SCH (08:15)
[2017-03-28] MEDS: INSULIN LISPRO 100 UNIT/ML 3 ML VIAL SUBCUT PRN (08:16)
--- NOTE | 2017-03-28 09:03 | PDOC DISCHARGE SUMMARY ---
General - Admit/Disc Date/PCP Admission Date/Primary Care Provider: 03/25/17 22:50 New primary Care Provider: Dr. Pardo Discharge Date: 03/28/17 - Discharge Diagnosis (1) Diabetic ketoacidosis Summary: Resolved (2) Uncontrolled diabetes mellitus Summary: New onset diabetes mellitus with a hemoglobin A1c greater than 14. The patient has been initiated on Lantus and mealtime Humalog. He also has been started on metformin 1000 mg twice daily. (3) Elevated LFTs Is this a current diagnosis for this admission?: Yes Summary: Likely secondary to diabetic ketoacidosis. Improving (4) Morbid obesity with BMI of 50.0-59.9, adult Is this a current diagnosis for this admission?: Yes Summary: The patient seems quite motivated to learn about diabetes and lose weight. (5) Thrombocytopenia Summary: Of undetermined significance at this point. Also on the day of discharge the patient has developed leukopenia. Further workup can be done as an outpatient. (6) Constipation Summary: Improved - Additional Information Resuscitation Status: Full Code Discharge Diet: Diabetic Discharge Activity: Activity As Tolerated, Balance Activity w/Rest, Slowly Increase Activity, Walk Frequently Home Medications: Insulin Glargine,Hum.rec.anlog [Lantus Insulin 100 Unit/mL] 40 unit SUBCUT DAILY #1 pkg 03/28/17 Insulin Lispro [Humalog Insulin (Lispro) 100 unit/mL] 8 unit SUBCUT AC #1 pkg Metformin HCl [Glucophage 500 mg Tablet] 1,000 mg PO BIDACBS #60 tablet History of Present Illness History of Present Illness: CLAUDE SHELTON is a 46 year old male who presented to the emergency room with diabetic ketoacidosis. Hospital Course Hospital Course: The patient is an extremely pleasant morbidly obese 46-year-old - Spanish male who was seen at a local urgent care a few days prior to admission. At that visit his blood pressure sugar was too high to be read on the meter and he was diagnosed with diabetes and sent home with a prescription for metformin 500 mg twice daily. Over the next 3 days the patient continued to worsen. He became increasingly lethargic, unable to eat with severe polydipsia and polyuria. In the emergency room he was found to have evidence of diabetic ketoacidosis. He was admitted to the hospital and initially started on an insulin drip. His anion gap normalized over the next several hours and he was transitioned to a regimen of Lantus and sliding scale insulin. He was started on metformin 1000 mg twice daily. At the time of admission his hemoglobin A1c was found to be greater than 14. Over the course of this hospitalization he was seen by our diabetes nurse educator and clinical dietitian. The nursing staff worked with the patient and on the day of discharge he is able to give himself insulin injections and check his own blood sugar. He will be discharged with Lantus 40 units daily and Humalog 12 units 3 times daily before meals. Fortunately the patient does have insurance although he does not have a primary care provider. Our discharge planners have set him up to follow with Dr. Pardo as an outpatient and he has an appointment scheduled for next week. The patient is encouraged to check his blood sugar 4 times daily and write down his values and take them to his first office appointment with Dr. Pardo. At this point the patient is quite stable and doing well. Maximum hospital benefit has been reached and he will be discharged home today in stable condition. Physical Exam Vital Signs: Temp Pulse Resp BP Pulse Ox 98.7 F 102 H 18 127/82 H 95 03/28/17 07:20 03/28/17 07:20 03/28/17 07:20 03/28/17 07:20 03/28/17 07:20 Intake & Output 03/27/17 03/28/17 03/29/17 06:59 06:59 06:59 Intake Total 4621 3520 Output Total 0 Balance 4621 3520 Weight 154.9 kg 157.5 kg General appearance: PRESENT: no acute distress, morbidly obese, well-developed, well-nourished Head exam: PRESENT: atraumatic, normocephalic Mouth exam: PRESENT: moist, tongue midline Respiratory exam: PRESENT: clear to auscultation jolly. ABSENT: rales, rhonchi, wheezes Cardiovascular exam: PRESENT: RRR. ABSENT: diastolic murmur, rubs, systolic murmur GI/Abdominal exam: PRESENT: normal bowel sounds, soft, other - I could not assess for organomegaly due to the patient's body habitus. ABSENT: distended, guarding, mass, rebound, tenderness Extremities exam: PRESENT: full ROM. ABSENT: calf tenderness, clubbing, pedal edema Neurological exam: PRESENT: alert, awake, oriented to person, oriented to place , oriented to time, oriented to situation, CN II-XII grossly intact. ABSENT: motor sensory deficit Psychiatric exam: PRESENT: appropriate affect, normal mood. ABSENT: homicidal ideation, suicidal ideation Skin exam: PRESENT: dry, intact, warm. ABSENT: cyanosis, rash Results Laboratory Results: 03/28/17 07:00 03/28/17 07:00 03/27/17 03/27/17 03/27/17 10:43 14:43 18:50 WBC RBC Hgb Hct MCV MCH MCHC RDW Plt Count Seg Neutrophils % Lymphocytes % Monocytes % Eosinophils % Basophils % Absolute Neutrophils Absolute Lymphocytes Absolute Monocytes Absolute Eosinophils Absolute Basophils Sodium 136.0 L 135.5 L 136.3 L Potassium 4.1 4.3 4.1 Chloride 109 H 109 H 109 H Carbon Dioxide 18 L 18 L 19 L Anion Gap 9 9 8 BUN 15 14 14 Creatinine 0.92 0.96 0.95 Est GFR ( Amer) > 60 > 60 > 60 Est GFR (Non-Af Amer) > 60 > 60 > 60 Glucose 360 H 335 H 293 H Calcium 8.8 8.9 9.1 Magnesium Total Bilirubin AST ALT Alkaline Phosphatase Total Protein Albumin 03/27/17 03/28/17 03/28/17 22:55 02:55 07:00 WBC 2.6 L D RBC 5.03 Hgb 12.7 L Hct 38.1 MCV 76 L MCH 25.3 L MCHC 33.5 RDW 14.3 H Plt Count 91 L Seg Neutrophils % 40.1 L Lymphocytes % 43.5 Monocytes % 11.6 Eosinophils % 3.9 Basophils % 0.9 Absolute Neutrophils 1.0 L Absolute Lymphocytes 1.1 Absolute Monocytes 0.3 Absolute Eosinophils 0.1 Absolute Basophils 0.0 Sodium 138.1 139.2 Potassium 4.1 4.0 Chloride 112 H 111 H Carbon Dioxide 19 L 23 Anion Gap 7 5 BUN 13 12 Creatinine 0.94 1.03 Est GFR ( Amer) > 60 > 60 Est GFR (Non-Af Amer) > 60 > 60 Glucose 268 H 236 H Calcium 9.3 9.0 Magnesium Total Bilirubin AST ALT Alkaline Phosphatase Total Protein Albumin 03/28/17 07:00 WBC RBC Hgb Hct MCV MCH MCHC RDW Plt Count Seg Neutrophils % Lymphocytes % Monocytes % Eosinophils % Basophils % Absolute Neutrophils Absolute Lymphocytes Absolute Monocytes Absolute Eosinophils Absolute Basophils Sodium 138.7 Potassium 4.5 Chloride 110 H Carbon Dioxide 22 Anion Gap 7 BUN 11 Creatinine 0.95 Est GFR ( Amer) > 60 Est GFR (Non-Af Amer) > 60 Glucose 248 H Calcium 9.1 Magnesium 1.7 Total Bilirubin 0.6 AST 55 ALT 89 H Alkaline Phosphatase 58 Total Protein 5.1 L Albumin 3.0 L Impressions: Chest X-Ray 03/25/17 21:21 IMPRESSION: NO ACUTE RADIOGRAPHIC FINDING IN THE CHEST. Qualifiers PATEINT BEING DISCHARGED WITH ANY OF THE FOLLOWING DIAGNOSIS?: No Plan Discharge Plan: The patient will be discharged home today in stable condition. He will follow- up with Dr. Pardo next week. Time Spent: Greater than 30 Minutes
[2017-03-28 09:22] VITALS: BP 112/68
== END 2017-03-28 10:15 | disposition home or self-care (01) | DRG 638 ==
LOC: ER 18:29 → EH 21:45 → UNDOADMIN 21:45 → EH 22:50 → 3W 03-26 00:10
PROVIDERS: ADMIT Family Medicine; ATTEND Family Medicine
DX: E13.10 Other specified diabetes mellitus with ketoacidosis without coma (principal); Z68.43 Body mass index [BMI] 50.0-59.9, adult; E66.01 Morbid (severe) obesity due to excess calories; R94.5 Abnormal results of liver function studies; D69.6 Thrombocytopenia, unspecified; K59.00 Constipation, unspecified; Z87.891 Personal history of nicotine dependence; Z79.84 Long term (current) use of oral hypoglycemic drugs; Z79.4 Long term (current) use of insulin
CPT/HCPCS: 36415; 71010; 80048; 80053; 80061; 80307; 81001; 82550; 82553; 82803; 82962; 83036; 83735; 84443; 84484; 85025; 85027; 93005; 93010; 96374; 99291; 99292; J1644; J1815; J3480; J3490; J7030; J7120

== ENCOUNTER → 2019-12-14 | Outpatient (CLI) | payer OTHER ==
--- NOTE | 2019-12-14 11:37 | RADIOLOGY REPORT (SQ) ---
EXAM DESCRIPTION: ANKLE RIGHT COMPLETE IMAGES COMPLETED DATE/TIME: 12/14/2019 10:11 am REASON FOR STUDY: PAIN IN RIGHT ANKLE AND JOINTS OF RIGHT FOOT M25.571 PAIN IN RIGHT ANKLE AND JOIN TS OF RIGHT FOOT COMPARISON: None. NUMBER OF VIEWS: Three views. TECHNIQUE: AP, lateral, and oblique radiographic images acquired of the right ankle. LIMITATIONS: None. FINDINGS: MINERALIZATION: Normal. BONES: No acute fracture or dislocation. Small os ossific density adjacent to the anterior inferior aspect of the proximal calcaneus, may represent an accessory ossicle or findings related prior remote injury. Very tiny ossific density in the soft tissues adjacent to the lateral malleolus may be rela filiberto prior remote injury. Very prominent retrocalcaneal spur. JOINTS: No effusions. SOFT TISSUES: No soft tissue swelling. No foreign body. OTHER: No other significant finding. IMPRESSION: 1. No acute osseous findings. 2. Prominent retrocalcaneal spur. TECHNICAL DOCUMENTATION: JOB ID: [id number] 2010 [employer]- All Rights Reserved Reading location - IP/workstation name: [email or web address]
== END ==
LOC: OD 09:58
PROVIDERS: ATTEND Physician Assistant
DX: M25.571 Pain in right ankle and joints of right foot (principal)